=== PATIENT | female | born 1980 | race Two or more races ===

== ENCOUNTER 2025-03-07 23:12 | Emergency (ER) | payer MEDICAID, SELFPAY ==
[2025-03-07 23:13] VITALS: BMI 28.3
--- NOTE | 2025-03-07 23:27 | EKG_ITS ---
[facility] Test Date: 2025-03-07 Pat Name: SUZAN RANDALL Department: Room: - Gender: Female Re Examiner: : 1980 Requested By: ED Temporary Provider Order Number: [id number] Reading MD: ED Temporary Provider Measurements Intervals Bypro Rate: 88 P: 57 UT: 159 QRS: 78 QRSD: 87 T: 30 QT: 344 QTc: 417 Interpretive Statements SINUS RHYTHM NONSPECIFIC T-WAVE ABNORMALITY No previous ECG available for comparison /store/S0/[id number]/[id number].pdf
[2025-03-07 23:28] VITALS: BP 175/91; PULSE 82; RESP 20; TEMP 37.1; O2SAT 100
--- NOTE | 2025-03-08 00:21 | PD.EDRME ---
Rapid Medical Screening Exam RME Arrival date/time: 03/07/25 23:12 Chief Complaint: Extremity Injury, Upper Time Seen by Provider: 03/08/25 00:06 Vital signs: Vital Signs Temperature 98.7 F 03/07/25 23:28 Pulse Rate 82 03/07/25 23:28 Respiratory Rate 20 03/07/25 23:28 Blood Pressure 175/91 H 03/07/25 23:28 Pulse Oximetry (%) 100 03/07/25 23:28 Oxygen Delivery Method Room Air 03/07/25 23:28 Vital signs reviewed by provider: Yes RME Narrative: 44-year-old female presents to the ED with complaint of right shoulder pain. She denies injury. She is thinks it could possibly be arthritis because all of her joints are hurting right now. She is taking Tylenol and ibuprofen without any relief. Right shoulder x-ray and Toradol ordered.
--- NOTE | 2025-03-08 00:23 | XR_ITS ---
Examination: Shoulder,right, 3 views Technique: Shoulder AP internal rotation, AP external rotation, Y view shoulder, 3 views Exam date and time :March 18, 2025 1245 hours INDICATIONS: Right shoulder pain beginning one week ago. Findings 1. Prominent right shoulder calcific tendinitis Moderate to advanced right glenohumeral joint No fracture or dislocation IMPRESSION: Moderate to advanced narrowing glenohumeral joint Prominent calcific tendinitis
[2025-03-08] MEDS: KETOROLAC INJ 60 MG/2 ML VIAL 30 MG IM (00:52)
--- NOTE | 2025-03-08 01:58 | PC.NURSE ---
PT LEFT AMA DUE TO THE WAIT TIME. PT STATED, SHE WILL GO SEE PCP TOMORROW. PROVIDER NOTIFIED.
== END 2025-03-08 02:00 | disposition left against medical advice (07) ==
PROVIDERS: Emergency Provider Emergency Medicine; PCP Obstetrics & Gynecology
DX: M25.511 Pain in right shoulder (principal); R94.31 Abnormal electrocardiogram [ECG] [EKG]; Z53.29 Procedure and treatment not carried out because of patient's decision for other reasons
CPT/HCPCS: 73030; 93005; 96372; 99281; J1885

== ENCOUNTER 2025-03-09 21:45 | Emergency (ER) | payer MEDICAID, SELFPAY ==
[2025-03-09 21:47] VITALS: BMI 27.3
[2025-03-09 22:20] VITALS: BP 161/77; PULSE 88; RESP 18; TEMP 37.3; O2SAT 98
[2025-03-09] MEDS: HYDROcodone/APAP 5/325 TABLET 1 TAB PO (22:50)
--- NOTE | 2025-03-09 22:54 | PD.EDEXREM ---
ED Extremity Problem RME/HPI General Chief complaint: Extremity Problem,Nontraumatic Stated complaint: RIGHT SHOULDER PAIN Time Seen by Provider: 03/09/25 22:40 Arrival date/time: 03/09/25 21:45 44F with no significant PMH presents to ED with 1 week of R shoulder pain w/o fall/trauma. Patient was here yesterday but left because she felt better after getting meds. Patient went to clinic and has outpatient specialist referral and MRI pending. Limitations: no limitations Related Data Home Medications ?Medication ?Instructions ?Recorded ?Confirmed Gentamicin Sulfate OPHTH DROPS * 3 drp OP QID #5 mL 05/25/17 (GARAMYCIN OPHTH DROPS *) Previous Rx's ?Medication ?Instructions ?Recorded ketotifen fumarate 0.025 % (0.035 1 drp Both eyes BID #5 mL 05/25/17 %) eye drops Allergies Allergy/AdvReac Type Severity Reaction Status Date / Time oseltamivir Allergy Intermediate SWELLING Verified 03/09/25 21:47 Review of Systems Review of Systems Systems Reviewed: All systems reviewed, normal except as documented Constitutional Constitutional: Reports system reviewed and no additional complaints, except as documented, Denies fever(s) and Denies headache(s) ENT Ears, Nose, Mouth, and Throat: Denies disequilibrium and Denies headache(s) Cardiovascular Cardiovascular: Reports system reviewed and no additional complaints, except as documented, Denies chest pain and Denies dyspnea Respiratory Respiratory: Reports system reviewed and no additional complaints, except as documented, Denies cough and Denies dyspnea Gastrointestinal Gastrointestinal: Reports system reviewed and no additional complaints, except as documented, Denies abdominal pain, Denies nausea and Denies vomiting Musculoskeletal Musculoskeletal: Reports as per HPI and Reports arthralgias Neurologic Neurologic: Reports system reviewed and no additional complaints, except as documented, Denies confusion, Denies disequilibrium and Denies headache(s) Psychiatric Psychiatric: Denies confusion Past Medical History Social History SMOKING STATUS: Never smoker ED Exam General Limitations: Present no limitations General appearance: Present alert and in no apparent distress Head Head exam: Present atraumatic Eye Eye exam: Present normal appearance, PERRL and EOMI ENT ENT exam: Present normal exam, normal oropharynx and mucous membranes moist Neck Neck exam: Present normal inspection, full ROM and trachea midline Chest Chest inspection: Present normal inspection and symmetric chest wall rise Respiratory Respiratory exam: Present normal lung sounds bilaterally Cardiovascular Cardiovascular exam: Present regular rate, normal rhythm and normal heart sounds Abdominal Exam Abdominal exam: Present soft and normal bowel sounds Extremities Exam Extremities exam: Present normal inspection and full ROM Back Exam Back exam: Present normal inspection and full ROM Neurological Exam Neurological exam: Present alert, oriented X3 and CN II-XII intact Psychiatric Psychiatric exam: Present normal affect and normal mood Skin Skin exam: Present warm, dry, intact and normal color Course Quality Measures none Orders Category Date Time Status sling [Splint / Immobilizer] STAT Care 03/09/25 22:41 Completed HYDROcodone*/APAP 5/325 [Anthony 5/325] Med 03/09/25 22:41 Discontinued 1 tab PO X1 ONE Vital Signs Vital signs: Vital Signs Temperature 99.2 F 03/09/25 22:20 Pulse Rate 88 03/09/25 22:20 Respiratory Rate 18 03/09/25 22:20 Blood Pressure 161/77 H 03/09/25 22:20 Pulse Oximetry (%) 98 03/09/25 22:20 Oxygen Delivery Method Room Air 03/09/25 22:20 O2 at 98% on RA and WNLs Extremity Problem MDM Narrative MDM Narrative:: 44F with no significant PMH presents to ED with 1 week of R shoulder pain w/o fall/trauma. Patient was here yesterday but left because she felt better after getting meds. Patient went to clinic and has outpatient specialist referral and MRI pending. Physical exam reveals no R shoulder tenderness. Pain is with ROM, which is limited. Patient is afebrile, calm, and alert. XR from yesterday showed calcified tendinitis. Given sling, meds, and retirement plan counselor. Patient data External records reviewed:: [facility] previous records Clinical information provided by:: patient Social determinants that could affect healthcare access:: none Patient has the following chronic illnesses:: none How is presenting disease/condition affected by chronic disease/condition?: no chronic disease Evaluation data The following diagnostics were reviewed and interpreted by me:: other (specify) (none) Lab and/or radiology exams considered but not ordered:: not ordered Interpretation Summary: n/a Medications / Prescriptions Medications or Prescriptions considered but not ordered:: ordered Medication administrations:: Medication Administration History Discontinued Medications Hydrocodone Bitart/Acetaminophen (Hydrocodone/Apap 5/325 Tablet) 1 tab PO X1 ONE Stop: 03/09/25 22:42 Last Admin: 03/09/25 22:50 Dose: 1 tab Documented By: KF above Consultations Consultation(s) initiated? (list below): No Diagnosis Extremity Problem Differential Diagnosis: herpes zoster, gout, cellulitis, superficial thrombophlebitis, deep venous thrombosis of upper extremity, lower extremity edema, deep vein thrombosis of lower extremity and other (tendonitis) Most likely diagnosis given after review of the tests above:: tendonitis Admission Indicated Admission indicated?: not indicated Admission Request Was there a request for admission?: No Disposition Plan Disposition Plan: Discharge Discharge Attestation Discharge Attestation: The patient and all family members were given an opportunity to ask questions and understood the discharge instructions. Discharge instructions specifically effects, indications for sooner follow up or return to the emergency department, and the expected course of current diagnosis. Patient condition: Stable Discharge Plan Plan Patient Disposition: HOME (Self Care) Discharge Disposition comment: Stable Prescriptions/Referrals Prescriptions/Med Rec: No Action Gentamicin Sulfate OPHTH DROPS * (GARAMYCIN OPHTH DROPS *) 5 ML drops 3 drp OP QID Qty: 5 ketotifen fumarate 5 ML drops 1 drp Both eyes BID Qty: 5 0RF Problem List Clinical Impression: Tendonitis Patient/Caregiver Discharge Instructions Education Materials: ED Tendonitis Additional Instructions: Please follow-up with PCP within 24-48 hours and return immediately if symptoms worsen. If problem persists, recommend outpatient PT and/or MRI follow-up. In the meantime, rest, use ice/heat, and/or compression. Print Language: Norwegian Stand Alone Forms: Work/School Release, Patient Portal Info Letter SHAHLA/ANNIE Supervising Physician SHAHLA/ANNIE Supervising Physician: Dr. Renee
== END 2025-03-09 22:53 | disposition home or self-care (01) ==
LOC: SERX 22:47
PROVIDERS: Emergency Provider Emergency Medicine
DX: M77.8 Other enthesopathies, not elsewhere classified (principal)
CPT/HCPCS: 80053; 85025; 86850; 86900; 86901; 99282; A9270

== ENCOUNTER → 2025-03-25 | Outpatient (CLI) | payer MEDICAID, SELFPAY ==
--- NOTE | 2025-03-25 13:00 | XR_ITS ---
MRI shoulder, right, without contrast. Date and time: The Technique: Multiple axial, sagittal and coronal sections of the shoulder have been obtained. Siemens high-resolution 1.5 Shayy MRI scanner is utilized. Axial fat-suppressed sections, TR 2350, TE 18 T2-weighted coronal fat-saturated images, TR 3500, TE 7100 T1-weighted coronal images, TR 500, TE 15 T2-weighted sagittal fat-saturated images, TR 3500, TE 57 T1-weighted sagittal sections, TR 504, TE 13. Findings: Supraspinatus tendon insertion is abnormal, 20 mm full-thickness tear. Infraspinatus tendon insertion is intact. Subscapularis insertion is intact. Subscapularis bursa is not seen. Long head of the biceps is in the bicipital groove. No definite tear of the biceps superior labral anchor is seen. Retraction of the musculotendinous junction of the rotator cuff is mild. Tendinosis pattern is moderate. Distance between the acromium and humeral head is 4.7 mm Atrophy of the supraspinatus muscle is moderate. Atrophy of the infraspinatus muscle is mild. Sagittal sections demonstrate a significant right shoulder calcific tendinitis Acromioclavicular joint demonstrates mild osteoarthritis . Osacromiale is not identified. Marrow edema in the humeral head. Bony glenoid fossa on the sagittal sections does not demonstrate osseous defect. Occult fracture or area of avascular necrosis is not seen. Acromioclavicular joint separation is not visible. Defect in the posterolateral margin of the humeral head is not seen Impression: 20 mm full-thickness tear supraspinatous tendon insertion Rotator cuff impingement syndrome Significant right shoulder calcific tendinitis Marrow edema in the humeral head, recommend repeat plain films right shoulder follow-up
== END | disposition home or self-care (01) ==
PROVIDERS: PCP Student in an Organized Health Care Education/Training Program; Referring Provider Student in an Organized Health Care Education/Training Program; Visit Provider Student in an Organized Health Care Education/Training Program
DX: M75.101 Unspecified rotator cuff tear or rupture of right shoulder, not specified as traumatic (principal); M75.31 Calcific tendinitis of right shoulder
CPT/HCPCS: 73221

== ENCOUNTER → 2025-09-15 | Outpatient (CLI) | payer MEDICAID, SELFPAY ==
--- NOTE | 2025-09-15 11:00 | XR_ITS ---
Examination: Screening digital mammography, bilateral Computer aided detection 3-D breast Tomosynthesis, bilateral Date and time of exam: September 15, 2025, 1108 hours, compared to mammograms dating to September 16, 2018 Indication: Screening Technique: Nonmagnified MLO, CC views of the breasts to been obtained, reconstructed from 3-D Tomosynthesis images. R2 computer aided detection program utilized for evaluation of suspicious masses and/or abnormal calcifications. 3-D Tomosynthesis images obtained. Findings: The breasts are heterogeneously dense, which may obscure small masses Benign calcifications No interval suspicious masses Impression: BI-RADS category II: Benign Findings. Recommend 1 year follow-up mammogram.
== END | disposition home or self-care (01) ==
LOC: CDIM 11:01
PROVIDERS: PCP Internal Medicine; Referring Provider Internal Medicine; Visit Provider Internal Medicine
DX: Z12.31 Encounter for screening mammogram for malignant neoplasm of breast (principal); R92.323 Mammographic fibroglandular density, bilateral breasts; R92.1 Mammographic calcification found on diagnostic imaging of breast
CPT/HCPCS: 77063; 77067